=== PATIENT | male | born 1950 | race Caucasian/White ===

== ENCOUNTER 2021-07-08 10:13 | Outpatient (CLI) | payer BC | END 2021-07-08 10:14 | disposition home or self-care (01) | LOC: LAB 10:13 | DX: I48.0 Paroxysmal atrial fibrillation (principal); Z79.01 Long term (current) use of anticoagulants; Z51.81 Encounter for therapeutic drug level monitoring; I27.82 Chronic pulmonary embolism | CPT/HCPCS: 36416; 85610 ==

== ENCOUNTER 2021-07-14 10:55 | Outpatient (CLI) | payer BC | END 2021-07-14 10:56 | disposition home or self-care (01) | LOC: LAB 10:55 | DX: Z79.01 Long term (current) use of anticoagulants (principal); Z51.81 Encounter for therapeutic drug level monitoring; I48.0 Paroxysmal atrial fibrillation; I27.82 Chronic pulmonary embolism | CPT/HCPCS: 36416; 85610 ==

== ENCOUNTER 2021-07-18 11:36 | Emergency (ER) | payer BC ==
[2021-07-18 12:16] LABS: BASOPHILS % (AUTO) 0.9 %; EOSINOPHILS % (AUTO) 0.4 %; HCT - HEMATOCRIT 47.2 % (42.0-52.0); HGB - HEMOGLOBIN 15.9 g/dL (14.0-18.0); LYMPHOCYTES # (AUTO) 0.8 10^3/uL (1.5-3.5); LYMPHOCYTES % (AUTO) 17.1 %; MEAN CORPUSCULAR HEMOGLOBIN 35.4 pg (27.0-31.0); MEAN CORPUSCULAR HGB CONC 33.7 g/dL (32.0-36.0); MEAN CORPUSCULAR VOLUME 105.1 fL (80.0-94.0); MEAN PLATELET VOLUME 10.3 fL (7.4-11.4); MONOCYTES # (AUTO) 0.8 10^3/uL (0.0-1.0); MONOCYTES % (AUTO) 17.9 %; NEUTROPHILS % (AUTO) 63.3 %; PLT - PLATELET COUNT 162 10^3/uL (130-450); RED BLOOD COUNT 4.49 10^6/uL (4.70-6.10); RED CELL DISTRIBUTION WIDTH 16.3 % (12.0-15.0); WHITE BLOOD COUNT 4.7 x10^3/uL (4.8-10.8)
--- NOTE | 2021-07-18 12:18 | ED Physician Documentation ---
History of Present Illness - Stated complaint Stated Complaint: LT FT SWELLING - Chief complaint Chief Complaint: Ext Problem - Additonal information Additional information: 70-year-old male presents to the emergency department for evaluation of acute left lower extremity swelling. 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 Patient is denying fevers, chest pain or shortness of air. He states that his leg was not swollen yesterday. Today the foot is markedly swollen though not erythematous. It also has a mildly decreased sensation. He is ambulating at baseline with a cane. Patient tells this provider that he is trying to moved to [facility] as he got from his and cannot stand to be in the same town as her. He has received all of his past medical care in [place]. He reports a history of lung cancer status post pulmonary resection. Also has a history of coronary artery disease with stenting. Besides the history of "rat poison" he is unsure the name of the medications that he takes. He is a former smoker and thinks he has COPD but has been never formally diagnosed as such. Patient has made arrangements to have his INR levels checked secondary to his Coumadin use. He reports that he was told yesterday due to a subtherapeutic level to increase his dose to 4 mg daily. This gentleman is residing in [place] He is sleeping in an upright seated position. Review of Systems Unable to obtain: Other (poor historian. Reports "everything is is my chart") Constitutional: denies: Fever, Chills Nose: reports: Reviewed and negative Throat: reports: Reviewed and negative Cardiac: reports: Reviewed and negative Respiratory: reports: Reviewed and negative GI: reports: Reviewed and negative : reports: Reviewed and negative Musculoskeletal: reports: Other (Left lower extremity swelling) Neurologic: denies: Generalized weakness, Focal weakness, Numbness PD PAST MEDICAL HISTORY - Present Medications Home Medications: Ambulatory Orders Medication Instructions Recorded Confirmed Albuterol Sulfate [Proair 90 mcg IH QID 07/18/21 07/18/21 Digihaler] Aspirin Chewable [St Joselo 81 mg PO DAILY 07/18/21 07/18/21 Aspirin] Fluoxetine HCl [Prozac] 20 mg PO DAILY 07/18/21 07/18/21 Furosemide [Lasix] 40 mg PO DAILY 07/18/21 07/18/21 Thiamine [Vitamin B-1] 100 mg PO DAILY 07/18/21 07/18/21 Warfarin Sodium [Jantoven] 4 mg PO DAILY 07/18/21 07/18/21 diltiaZEM [Cardizem] 30 mg PO DAILY 07/18/21 07/18/21 - Allergies Allergies/Adverse Reactions: Allergies Allergy/AdvReac Type Severity Reaction Status Date / Time Unable to Assess Allergy Verified 07/18/21 11:47 PD ED PE EXPANDED - General General: Alert, No acute distress, Well developed/nourished - Cardiac Cardiac: Regular Rate, Radial strong equal, Pedal strong equal, Cap refill < 2 sec. No: Murmur Present - Respiratory Respiratory: Clear to ausultation maría. No: Distress, Labored - Abdomen Abdomen: Normal Bowel sounds. No: Tender to palpation - Extremities Extremities: Left leg (Significant varicose veins and hemosiderin staining. Left foot is swollen but not erythematous. 1+ palpable DP pulse. Brisk cap refill. Foot is warm. No tenderness in the posterior calf. 2+ femoral pulses. monophasic DP pulse) Results - Vitals Vitals: Vital Signs - 24 hr 07/18/21 07/18/21 11:41 14:43 Temperature 36.5 C Heart Rate 60 82 Respiratory 18 16 Rate Blood Pressure 122/61 151/105 H O2 Saturation 96 98 Oxygen O2 Source Room air - Labs Labs: Laboratory Tests 07/18/21 07/18/21 07/18/21 12:09 12:09 12:09 WBC 4.7 L RBC 4.49 L Hgb 15.9 Hct 47.2 MCV 105.1 H MCH 35.4 H MCHC 33.7 RDW 16.3 H Plt Count 162 MPV 10.3 Neut # (Auto) 3.0 Lymph # (Auto) 0.8 L Wells # (Auto) 0.8 Eos # (Auto) 0.0 Baso # (Auto) 0.0 Absolute Nucleated RBC 0.00 Nucleated RBC % 0.0 PT 15.4 H INR 1.4 H Sodium 133 L Potassium 3.8 Chloride 93 L Carbon Dioxide 30 Anion Gap 10.0 BUN 9 Creatinine 1.0 Estimated GFR (MDRD) 74 L Glucose 93 Calcium 8.6 Total Bilirubin 0.9 AST 40 ALT 22 Alkaline Phosphatase 105 B-Natriuretic Peptide Total Protein 6.9 Albumin 3.8 Globulin 3.1 Albumin/Globulin Ratio 1.2 Lipase 28 07/18/21 12:09 WBC RBC Hgb Hct MCV MCH MCHC RDW Plt Count MPV Neut # (Auto) Lymph # (Auto) Wells # (Auto) Eos # (Auto) Baso # (Auto) Absolute Nucleated RBC Nucleated RBC % PT INR Sodium Potassium Chloride Carbon Dioxide Anion Gap BUN Creatinine Estimated GFR (MDRD) Glucose Calcium Total Bilirubin AST ALT Alkaline Phosphatase B-Natriuretic Peptide 235 H Total Protein Albumin Globulin Albumin/Globulin Ratio Lipase - Rads (name of study) CXR Radiology: Final report received (Mildly prominent interstitial markings which may reflect pulmonary edema versus chronic interstitial change. Small left pleural effusion/atelectasis versus scarring.) US DVT Radiology: Final report received (No deep vein thrombus) Arterial US left left Radiology: Final report received (No arterial occlusion) PD MEDICAL DECISION MAKING - ED course Complexity details: reviewed results, re-evaluated patient, considered differential, d/w patient ED course: 70 year old male who is residing in his truck and has a hx of DVT in the left leg presents to the ED for acute swelling in left and foot that he noted this am. Pt does have a hx of previous DVT in the left leg. he is compliant with his coumadin, but most recently his INR has been subtherapeutic. He reports to me that his INR dosage was increased yesterday to 4 mg daily. I am screening labs were otherwise without acute findings. Ultrasound DVT of the left leg did not show any venous thrombus. He had also reported a history of arterial thrombus for which he has iliac artery stenting. Arterial ultrasound was negative for findings of thrombus. The foot is warm and there is a palpable as well as a biphasic Doppler pulse on the lower extremity. This gentleman does however have acute swelling which I suspect is due to the lack of use of his compression stockings as well as sleeping upright in his [place]. At this time Patient is stable for discharge. He is advised to continue the recently increased dose of Coumadin. He does have lab scheduled to have his INR rechecked. He is encouraged to use compressive stockings as well as elevation of the leg at night. Departure - Departure Disposition: 01 Home, Self Care Clinical Impression: Left leg swelling, History of deep venous thrombosis (DVT) of distal vein of left lower extremity Condition: Stable Record reviewed to determine appropriate education?: Yes Comments: Rishi you are seen in the emergency department today for acute swelling of your left lower extremity. You do report a history of deep vein thrombosis as well as a problem with arterial flow in your legs. The ultrasound today does not show any venous or arterial clots. The most likely cause of your leg swelling is however the fact that your legs are dependent so much while in your car. I do recommend that you elevate your legs is much as you can at night and begin to wear the compressive stockings. [place] establish yourself with a primary care doctor as soon as possible. 50 any point you develop worsening swelling, develop fevers, have chest pain or shortness of air and please return immediately to the ER for second evaluation. Discharge Date/Time: 07/18/21 14:46
[2021-07-18 12:21] LABS: INR 1.4 (0.8-1.2); PT - PROTHROMBIN TIME 15.4 secs (9.9-12.6)
[2021-07-18 12:32] LABS: ALBUMIN 3.8 g/dL (3.2-5.5); ALBUMIN/GLOBULIN RATIO 1.2 (1.0-2.2); BILIRUBIN,TOTAL 0.9 mg/dL (0.2-1.0); CALCIUM 8.6 mg/dL (8.5-10.3); POTASSIUM 3.8 mmol/L (3.5-5.0); TOTAL PROTEIN 6.9 g/dL (6.7-8.2)
--- NOTE | 2021-07-18 13:08 | XRAY Report ---
PROCEDURE: Chest 1 View X-Ray INDICATIONS: chest pain TECHNIQUE: One view of the chest was acquired. COMPARISON: None. FINDINGS: SUPPORT DEVICES: None. LUNGS/PLEURA: Blunting of the left costophrenic sulcus, compatible with pleural effusion/atelectasis versus scarring. Mildly prominent interstitial markings. MEDIASTINUM: The cardiac silhouette is partially obscured. BONES/SOFT TISSUES: No acute abnormality. IMPRESSION: 1.Mildly prominent interstitial markings, which may reflect pulmonary edema versus chronic interstiti al change. 2.Small left pleural effusion/atelectasis versus scarring. Reviewed by: Mauro James MD on 07/18/2021 1:06 PM [facility] Approved by: Mauro James MD on 07/18/2021 1:06 PM [facility] Station ID: [id number]
[2021-07-18 14:44] VITALS: BP 151/105
--- NOTE | 2021-07-18 15:15 | Ultrasound Report ---
PROCEDURE: Duplex Ext Veins Left INDICATIONS: acute swelling, pain; hx of DVT TECHNIQUE: Real-time imaging, as well as color and pulse Doppler interrogation, were performed of the lower extr emity deep veins from the inguinal ligament to the popliteal fossa. COMPARISON: None. FINDINGS: VASCULATURE: Normal spontaneous flow and phasicity, augmentation and waveforms, and compressibility o f the vessels from the common femoral veins through the calf veins. SOFT TISSUES: Calf edema. IMPRESSION: 1.No sonographic evidence of deep venous thrombus. Reviewed by: Mauro James MD on 07/18/2021 3:14 PM [facility] Approved by: Mauro James MD on 07/18/2021 3:14 PM [facility] Station ID: [id number]
--- NOTE | 2021-07-18 16:15 | Ultrasound Report ---
PROCEDURE: Duplex Lwr Ext Arterial LT INDICATIONS: pain, swelling, hx of arterial stenting TECHNIQUE: Color and pulse Doppler interrogation was performed of the left lower extremity arterial system, with image documentation. COMPARISON: None. FINDINGS: Common femoral artery: 99 cm/sec, with triphasic flow. Deep femoral artery: 231 cm/sec, with biphasic flow. Proximal superficial femoral artery: 111 cm/sec, with triphasic flow. Mid superficial femoral artery: 122 cm/sec, with triphasic flow. Distal superficial femoral artery: 85 cm/sec, with triphasic/biphasic flow. Popliteal artery: 100 cm/sec, with triphasic flow. Posterior tibial artery: 167 cm/sec proximally and 91 cm/s distally, with triphasic flow. Anterior tibial artery: 64 cm/s proximally and 46 cm/sec distally, with biphasic flow. Dorsalis pedis artery: 55 cm/s with biphasic flow. Monreal-scale imaging description: There is scattered atherosclerotic plaque along the left lower extre mity arteries. IMPRESSION: 1. Focal stenosis within the deep femoral artery proximally. 2. Elsewhere, no evidence of high-grade stenosis within the left lower extremity arteries. Reviewed by: Sukh Thomas MD on 07/18/2021 4:13 PM PST Approved by: Sukh Thomas MD on 07/18/2021 4:13 PM PST Station ID: [id number]
== END 2021-07-18 14:46 | disposition home or self-care (01) ==
LOC: ED 11:36
DX: R60.0 Localized edema (principal); Z86.718 Personal history of other venous thrombosis and embolism; Z87.891 Personal history of nicotine dependence; Z79.01 Long term (current) use of anticoagulants
CPT/HCPCS: 36415; 80053; 83690; 83880; 85025; 85610; 99282; 99284